=== PATIENT | female | born 1980 | race Caucasian/White ===

== ENCOUNTER 2018-12-10 17:54 | Emergency (ER) | payer SELFPAY ==
[2018-12-10] MEDS ORDERED: Acetaminophen/HYDROcodone 325-5 MG Tab ONE (18:00)
[2018-12-10] MEDS ORDERED: Ketorolac 60 MG/2 ML SDV IM ONE (18:40)
--- NOTE | 2018-12-11 02:12 | ER ---
HISTORY: The patient is a 38-year-old female who was out fishing. The anchor fell off the side of the boat and her arm was caught in the anchor rope. The boat was moving, the anchor stopped the boat, and the arm wrapped tightly around her arm on the upper forearm. The patient is complaining of pain in the right elbow and in the upper forearm. ALLERGIES: NKDA. CURRENT MEDICATIONS: None. PHYSICAL EXAMINATION: GENERAL: She is alert, oriented, appears quite tearful, and in quite a bit of pain. VITAL SIGNS: Temperature is 98.8, pulse rate is 102, blood pressure is 142/71, O2 sat is 100% on room air, and respirations are 18. HEENT: Unremarkable. EXTREMITIES: Her right arm has an abrasion on the upper forearm on the radial side. There is a little bit of swelling. It is not tense or firm. The patient does have a good radial pulse. She has good capillary refill, and she has sensation in the fingers as well as movement both to flexion and extension and dorsiflexion and extension of the wrist. However, it is painful to do so. DATA: An x-ray was obtained of the forearm and of the elbow. The patient does not appear to have any fracture and does not appear to have any anterior sail sign, but radiology review is pending. She was given a shot of Toradol 30 mg in the ER with good results and placed in a sling. We gave her a take-home pack of Vicodin 5/325, 10 tablets, 1 to 2 p.o. q.4-6 hours, and a prescription to fill tomorrow for 10 more. If she needs anything beyond that, she can follow up with her regular provider on Thursday. We did discuss what to look for, for a compartment syndrome. The muscles are under the rope area were soft and did not fear palpably firm. She is aware to look for any numbness distal to the injury or increased pain distal to the injury or if the arm feels tense and swollen along with these symptoms to be seen right away. ALFREDO/ISABEL /[id number]
--- NOTE | 2018-12-12 17:41 | CR ---
Date of Service: 12/10/18 Clinical Data: TRAUMA RIGHT ELBOW: No acute fracture or dislocation. No joint effusion. No lytic or blastic bone lesions. [id number] [facility]
--- NOTE | 2018-12-12 17:44 | CR ---
Date of Service: 12/10/18 Clinical Data: TRAUMA RIGHT FOREARM: No acute fracture or dislocation. No lytic or blastic bone lesions. [id number] [facility]
== END 2018-12-10 19:35 | disposition home or self-care (01) ==
LOC: LB.ED 17:54
DX: S50.811A Abrasion of right forearm, initial encounter (principal); X58.XXXA Exposure to other specified factors, initial encounter
CPT/HCPCS: 73070; 73090; 96372; 99283; A9270; J1885